=== PATIENT | male | born 1990 | race Caucasian/White ===

== ENCOUNTER 2017-03-06 19:28 | Emergency (ER) | payer BC ==
[2017-03-06] MEDS ORDERED: LIDOCAINE HCL 1%, 10 MG/ML (50 mL VIAL) INF ONE (20:33)
[2017-03-06] MEDS ORDERED: VANCOMYCIN 1,500 MG in DEXTROSE 5%-WATER - 500 ML IVPB ONE (20:33)
[2017-03-06] MEDS ORDERED: SODIUM CHLORIDE 500 ML IV STA (20:34)
--- NOTE | 2017-03-06 20:40 | PDOC ---
History of Present Illness - General Chief Complaint: Wound Stated Complaint: ABSCESS BOIL Time Seen by Provider: 03/06/17 19:54 History Source: Patient Exam Limitations: No Limitations - History of Present Illness Initial Comments: 03/06/17 20:35 26yo Male patient w/ PmHx: HIV presents to ED c/o Abscess to left hip. Patient state symptoms began on Friday and has gotten worse. Patient reports few years ago similar symptoms occurred and he was evaluated by Business Attorney with dx: "cyst." Patient states today site is red, hot, tender and growing in size. He denies fever, cough, congestion, n/v/d, rash or any other complaints at this time. Timing/Duration: reports: getting worse Severity: Yes: moderate Location: reports: extremities Respiratory Risk Factors: reports: no cause identified Modifying Factors: worse with: antihistamine, calamine lotion, prednisone, scratching, topical steriods, other Associated Symptoms: denies: denies symptoms, blisters, change in skin texture, edema, fever, flushing, headache, hives, jaundice, malaise, nasal congestion, numbness, pallor, paresthesia, petechiae, rash, sore throat, swelling/mass/lumps , tingling, other Past History - Travel Traveled outside of the country in the last 30 days: No Close contact w/someone who was outside of country & ill: No - Past Medical History Allergies/Adverse Reactions: Allergies Allergy/AdvReac Type Severity Reaction Status Date / Time No Known Allergies Allergy Verified 03/06/17 20:04 Home Medications: Ambulatory Orders Cephalexin [Keflex] 500 mg PO BID #20 capsule 03/06/17 Elviteg/Gogo/Emtric/Tenofo Ala [Genvoya Tablet] 1 each PO DAILY 03/06/17 Oxycodone HCl/Acetaminophen [Percocet 10-325 mg Tablet] 1 each PO Q6H PRN #16 tablet MDD 4 TABS 03/06/17 Sulfamethoxazole/Trimethoprim [Bactrim Ds -] 1 tab PO BID #20 tablet 03/06/17 HIV: Yes - Psycho/Social/Smoking Cessation Hx Suicidal Ideation: No Smoking History: Current every day smoker Information on smoking cessation initiated: No Review of Systems - Review of Systems Able to Perform ROS?: Yes Is the patient limited Bengali proficient: No Constitutional: No: Chills, Fever, Night Sweats, Weakness Respiratory: No: Orthopnea, Shortness of Breath, Stridor, Wheezing Cardiac (ROS): No: Chest Pain, Lightheadedness, Palpitations, Syncope, Chest Tightness ABD/GI: No: Diarrhea, Nausea, Vomiting : No: Dysuria, Flank Pain, Hematuria, Pain Musculoskeletal: No: Back Pain Integumentary: Yes: Erythema, Other (Abscess). No: Bruising Neurological: No: Headache, Seizure, Ataxia, Dizziness All Other Systems: Reviewed and Negative *Physical Exam - Vital Signs Last Vital Signs Temp Pulse Resp BP Pulse Ox 98.3 F 111 H 18 124/70 99 03/06/17 19:34 03/06/17 19:34 03/06/17 19:34 03/06/17 19:34 03/06/17 19:48 - Physical Exam General Appearance: Yes: Nourished, Appropriately Dressed. No: Apparent Distress, Mild Distress, Moderate Distress, Severe Distress Neck: positive: Trachea midline, Supple. negative: Lymphadenopathy (R), Lymphadenopathy (L) Respiratory/Chest: positive: Lungs Clear, Normal Breath Sounds. negative: Chest Tender, Respiratory Distress, Accessory Muscle Use, Labored Respiration, Rapid RR Cardiovascular: positive: Regular Rhythm, Regular Rate Musculoskeletal: positive: Normal Inspection. negative: CVA Tenderness, Decreased Range of Motion, Vertebral Tenderness Extremity: positive: Normal Capillary Refill, Normal Inspection, Normal Range of Motion, Erythema (Left Hip), Inflammation (Left Hip). negative: Pedal Edema , Swelling, Calf Tenderness Integumentary: positive: Normal Color, Dry, Warm, Erythema, Other (Abscess formation). negative: Rash, Swelling, Bruising Neurologic: positive: media sales representative II-XII NML intact, Fully Oriented, Alert, Normal Mood/ Affect, Normal Response, Motor Strength 5/5 Procedures - Incision and Drainage I&D Site: Left: Other (HIP) Betadine cleansed: Yes Anesthesia: 1% Lidocaine Volume(ml): 10 Blade Size: 11 Attempts: 1 Iodinated Packin/4 in Plain Packing: Yes Complications: none Dressing: Yes Progress: 03/06/17 23:37 PATIENT TOLERATED PROCEDURE FAIRLY. ED Treatment Course - LABORATORY CBC & Chemistry Diagram: 03/06/17 21:00 03/06/17 21:55 *DC/Admit/Observation/Transfer Diagnosis at time of Disposition: Skin abscess Qualifiers: Site of cutaneous abscess: extremity Site of cutaneous abscess of extremity: lower extremity Laterality: left Qualified Code(s): L02.416 - Cutaneous abscess of left lower limb - Discharge Dispostion Disposition: HOME Condition at time of disposition: Improved Admit: No - Prescriptions Prescriptions: Sulfamethoxazole/Trimethoprim [Bactrim Ds -] 1 tab PO BID #20 tablet Cephalexin [Keflex] 500 mg PO BID #20 capsule Oxycodone HCl/Acetaminophen [Percocet 10-325 mg Tablet] 1 each PO Q6H PRN #16 tablet MDD 4 TABS PRN Reason: Severe Pain - Patient Instructions Printed Discharge Instructions: DI for Skin Abscess, DI for Incision and Drainage of a Skin Abscess Additional Instructions: FOLLOW UP IN 2 DAYS FOR RE-EVALUATION. TAKE MEDICATIONS PRESCRIBED. DO NOT DRIVE, DRINK ALCOHOL, OR OPERATE HEAVY MACHINERY WHILE TAKING PERCOCET. MONITOR FOR FEVER, INCREASE PAIN, SWELLING, FOUL ODOR OR ANY OTHER CONCERNS AND RETURN FOR EVALUATION. Print Language: FAROESE - Post Discharge Activity Work/School Note: Back to Work
[2017-03-06] MEDS ORDERED: LIDOCAINE HCL/PF 1% SDV 5ML VIAL ONE (21:02)
[2017-03-06] MEDS ORDERED: LIDOCAINE 2.5%/PRILOCAINE 2.5% (5 Gram/TUBE) TP ONE ×2 (21:24→23:06)
[2017-03-06 21:32] LABS: BASOPHIL 0.3 % (0-2.0); EOSINOPHIL 0.6 % (0-4.5); MCH 36.8 pg (25.7-33.7); MCHC 34.3 g/dl (32.0-35.9); MEAN CELL VOLUME 107.4 fl (80-96); NEUTROPHILS 75.7 % (42.8-82.8); PLATELET COUNT 193 K/MM3 (134-434); RDW 11.6 % (11.9-15.9); WHITE BLOOD COUNT 9.6 K/mm3 (4.0-10.0)
[2017-03-06] MEDS ORDERED: morphine CARPU-JECT 4 MG/1 ML DISP.SYRIN ONE (21:33)
[2017-03-06] MEDS ORDERED: ONDANSETRON 4 MG/2 ML VIAL ONE (21:33)
[2017-03-06] MEDS ORDERED: morphine CARPU-JECT 4 MG/1 ML DISP.SYRIN IVPUSH ONE ×2 (21:38→23:06)
[2017-03-06] MEDS ORDERED: ONDANSETRON 4 MG/2 ML VIAL IVPUSH ONE ×2 (21:38→23:06)
[2017-03-06 22:50] LABS: ALBUMIN 3.9 g/dl (3.4-5.0); ALK PHOS 58 U/L (45-117); ANION GAP 8 (8-16); BILIRUBIN,TOTAL 0.6 mg/dL (0.2-1.0); CALCIUM 8.4 mg/dL (8.5-10.1); CO2 26 mmol/L (21-32); COCKROFT - GAULT 91.9; GLUCOSE,RANDOM 85 mg/dL (74-106); SGOT/AST 17 U/L (15-37); SGPT/ALT 20 U/L (12-78); TOT PROT 6.8 g/dl (6.4-8.2)
[2017-03-06 23:08] LABS: PLATELET ESTIMATE ADEQUATE (NORMAL)
[2017-03-07 00:30] VITALS: BP 130/75; PULSE 89; TEMP 98
== END 2017-03-07 00:27 | disposition home or self-care (01) ==
LOC: JER 19:28
PROC: 0H9JXZZ Drainage of Left Upper Leg Skin, External Approach (ICD-10-PCS; principal; 2017-03-06)
PROC: 3E03329 Introduction of Other Anti-infective into Peripheral Vein, Percutaneous Approach (ICD-10-PCS; 2017-03-06)
PROC: 3E033NZ Introduction of Analgesics, Hypnotics, Sedatives into Peripheral Vein, Percutaneous Approach (ICD-10-PCS; 2017-03-06)
PROC: 3E033GC Introduction of Other Therapeutic Substance into Peripheral Vein, Percutaneous Approach (ICD-10-PCS; 2017-03-06)
DX: L02.416 Cutaneous abscess of left lower limb (principal); Z21 Asymptomatic human immunodeficiency virus [HIV] infection status; F17.210 Nicotine dependence, cigarettes, uncomplicated
CPT/HCPCS: 36415; 80053; 85025; 87040; 99283-25

== ENCOUNTER 2017-03-08 14:46 | Emergency (ER) | payer BC ==
[2017-03-08 14:54] VITALS: BP 136/79; PULSE 104; TEMP 100.1
--- NOTE | 2017-03-08 15:44 | PDOC ---
Suture Removal/Wound Check HPI - History of Present Illness Chief Complaint: Revisit,Wound Recheck Stated Complaint: DRAIN REMOVAL Time Seen by Provider: 03/08/17 15:19 History Source: Yes: Patient Exam Limitations: Yes: No Limitations Treated at: [facility] Date of Last ED visit: 03/06/17 - Previous ED Treatment Type of procedure performed on last visit: Yes: I&D of Abscess (left hip area) Tetanus Immunization: Yes: Up to Date Antibiotics Prescribed: Yes (bactrim DS and keflex ) - Onset of Previous Treatment Date of Occurence: 03/06/17 (I & D here ) Past History - Past Medical History Allergies/Adverse Reactions: Allergies No Known Allergies Allergy (Verified 03/08/17 14:54) Home Medications: Ambulatory Orders Cephalexin [Keflex] 500 mg PO BID #20 capsule 03/06/17 Elviteg/Gogo/Emtric/Tenofo Ala [Genvoya Tablet] 1 each PO DAILY 03/06/17 Oxycodone HCl/Acetaminophen [Percocet 10-325 mg Tablet] 1 each PO Q6H PRN #16 tablet MDD 4 TABS 03/06/17 Sulfamethoxazole/Trimethoprim [Bactrim Ds -] 1 tab PO BID #20 tablet 03/06/17 General: Yes: other (HIV) - Social History Smoking Status: Current every day smoker Number of Ciarettes Per Day: 3 Suture Removal/Wound Check PE - Physical Exam Laceration/Wound Check Symptoms: reports: Improved (left hip less painful) Current Severity Level: Mild Maximum Severity Level: Moderate Location of Laceration/Wound: left: Hip, Toe Comments: 03/08/17 15:42 Packing noted left hip with minimal surrounding erythema, slightly tender to touch, area I & D'd here on 03/06/17 03/08/17 15:42 Pain Radiation: None *Review of Systems - Review of Systems Able to Perform ROS?: Yes Constitutional: No: Symptoms Reported HEENTM: No: Symptoms Reported Respiratory: No: Symptoms reported Cardiac (ROS): No: Symptoms Reported ABD/GI: No: Symptoms Reported : No: Symptoms Reported Musculoskeletal: No: Symptoms Reported Integumentary: Yes: Other (left hip I & D here on 03/06/17, packing remains with minimal surrounding erythema) Procedures - Consent Consent obtained: From Patient - Additional Procedures Progress: 03/08/17 15:44 left hip packing removed, small amount of thick white discharge expressed from wound area cleansed with betadine and irrigated with NS 0.9% dried and 2 x 2 gauze reapplied with tegaderm Medical Decision Making - Medical Decision Making 03/08/17 15:48 03/08/17 15:53 03/08/17 15:53 Patient is a 26-year-old male with a history of HIV here today for packing removal from left hip after abscess was I & D's here 03/06/2017. Patient has been compliant with taking 2 different antibiotics Keflex and Bactrim. Patient denies any fever. Patient in triage was noted to have a temp however her temp was taken in exam room and was noted to be 98.6. Patient reports that pain in left hip area is much less. Packing removal left hip PLAN: Take antibiotics as previously ordered Follow up with surgeon Dr. Guevara for further evaluation this week *DC/Admit/Observation/Transfer Diagnosis at time of Disposition: Encounter for abscess packing removal - Discharge Dispostion Disposition: HOME Condition at time of disposition: Stable - Referrals Referrals: STAFF,NOT ON [Primary Care Provider] - Alex Guevara MD [Staff Physician] - - Patient Instructions Additional Instructions: Cleanse wounds with antibacterial soap and water dry wound cover with dressing when out of the home let air out at night Return to emergency room if any increased redness or tenderness of the left hip area or fever Follow up with surgeon this week for further evaluation Continue to take antibiotics as previously ordered Patient voiced understanding of discharge instructions and all questions were answered
== END 2017-03-08 15:59 | disposition home or self-care (01) ==
LOC: JERFT 14:46
DX: Z48.01 Encounter for change or removal of surgical wound dressing (principal); L02.416 Cutaneous abscess of left lower limb
CPT/HCPCS: 99281-25

== ENCOUNTER 2017-12-03 12:08 | Emergency (ER) | payer BC, OTHER ==
[2017-12-03] MEDS ORDERED: DIPHTH,PERTUSS(ACELL),TET 0.5 ML DISP.SYRIN IM ONE (12:22)
[2017-12-03 12:29] VITALS: BP 149/94; PULSE 86; TEMP 99.2; BMI 21.1
--- NOTE | 2017-12-03 12:34 | PDOC ---
History of Present Illness - General Chief Complaint: Bite Stated Complaint: DOG BITE TO RIGHT LOWER JAW AND CHEEK Time Seen by Provider: 12/03/17 12:11 - History of Present Illness Initial Comments: 12/03/17 12:29 27 M with h/o HIV on HAART, presenting with minor abrasion to R cheek after being bitten by a dog. 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 The dog subsequently bit his face, and the pt pulled away. Denies any significant bleeding or breakage of skin. No injuries anywhere else. The dog is known to the vet and has been immunized against rabies. Pt does not recall when his last tetanus shot was. Past History - Past Medical History Allergies/Adverse Reactions: Allergies Allergy/AdvReac Type Severity Reaction Status Date / Time No Known Allergies Allergy Verified 12/03/17 12:17 Home Medications: Ambulatory Orders Elviteg/Cob/Emtri/Tenof Alafen [Genvoya Tablet] 1 each PO DAILY 03/06/17 Amoxicillin/Potassium Clav [Augmentin 875-125 Tablet] 1 each PO BID #10 tablet 12/03/17 - Suicide/Smoking/Psychosocial Hx Smoking History: Current every day smoker Number of Cigarettes Smoked Daily: 3 Hx Alcohol Use: Yes (SOCIAL) Drug/Substance Use Hx: No Substance Use Type: None Review of Systems - Review of Systems Comments:: 12/03/17 12:31 "GENERAL/CONSTITUTIONAL: No fever or chills. No weakness. HEAD, EYES, EARS, NOSE AND THROAT: No change in vision. No ear pain or discharge. No sore throat. CARDIOVASCULAR: No chest pain or shortness of breath. RESPIRATORY: No cough, wheezing, or hemoptysis. GASTROINTESTINAL: No nausea, vomiting, diarrhea or constipation. GENITOURINARY: No dysuria, frequency, or change in urination. MUSCULOSKELETAL: No joint or muscle swelling or pain. No neck or back pain. SKIN: abrasion to R cheek NEUROLOGIC: No headache, vertigo, loss of consciousness, or change in strength/ sensation. ENDOCRINE: No increased thirst. No abnormal weight change. HEMATOLOGIC/LYMPHATIC: No anemia, easy bleeding, or history of blood clots. ALLERGIC/IMMUNOLOGIC: No hives or skin allergy. " *Physical Exam - Physical Exam Comments: 12/03/17 12:31 "GENERAL: Awake, alert, and fully oriented, in no acute distress HEAD: No signs of trauma EYES: PERRLA, EOMI, sclera anicteric, conjunctiva clear ENT: Auricles normal inspection, hearing grossly normal, nares patent, oropharynx clear without exudates. Moist mucosa NECK: Nontender, no stepoffs, Normal ROM, supple, no lymphadenopathy, JVD, or masses LUNGS: Breath sounds equal, clear to auscultation bilaterally. No wheezes, and no crackles HEART: Regular rate and rhythm, normal S1 and S2, no murmurs, rubs or gallops ABDOMEN: Soft, nontender, normoactive bowel sounds. No guarding, no rebound. No masses EXTREMITIES: Normal range of motion, no edema. No clubbing or cyanosis. No cords, erythema, or tenderness NEUROLOGICAL: Cranial nerves II through XII intact. 5/5 strength and sensation in all extremities, Normal speech, normal gait SKIN: superficial linear abrasion to R cheek with small superficial punctate area of skin breakage " Medical Decision Making - Medical Decision Making 12/03/17 12:32 27 M with HIV presenting with bite wound to R cheek. Exam notable only for superficial abrasion with small punctate area of skin breakage. No indication for wound repair. - Tdap - Ppx with augmentin - Animal bite form filled out and submitted I discussed the physical exam findings, ancillary test results and final diagnoses with the patient. I answered all of the patient's questions. The patient was satisfied with the care received and felt comfortable with the discharge plan and treatment plan. The patient agrees to follow up with the primary care physician within 24-72 hours. *DC/Admit/Observation/Transfer Diagnosis at time of Disposition: Dog bite - Discharge Dispostion Disposition: HOME Condition at time of disposition: Stable - Prescriptions Prescriptions: Amoxicillin/Potassium Clav [Augmentin 875-125 Tablet] 1 each PO BID #10 tablet - Referrals - Patient Instructions Printed Discharge Instructions: DI for Dog Bite Additional Instructions: Take the antibiotics as prescribed to prevent infection. If you experience worsening pain, swelling, redness, or any other concerning symptoms, return to the ER immediately. Otherwise, follow up with your primary doctor within 1 week for a re-evaluation. - Post Discharge Activity Forms/Work/School Notes: Back to Work - Attestations Physician Attestion: 12/03/17 12:35 I, Dr. Alex Walker MD, attest that this document has been prepared under my direction and personally reviewed by me in its entirety. I further attest, that it accurately reflects all work, treatment, procedures and medical decision -making performed by me.
[2017-12-03] MEDS ORDERED: AMOX TR/POT CLAV 875MG/125MG TABLETS (FP) PO ONE (12:35)
[2017-12-03] MEDS ORDERED: AMOX TR/POT CLAV 875MG/125MG TABLETS (FP) ONE (12:50)
== END 2017-12-03 13:14 | disposition home or self-care (01) ==
LOC: FER 12:08
PROC: 3E0234Z Introduction of Serum, Toxoid and Vaccine into Muscle, Percutaneous Approach (ICD-10-PCS; principal; 2017-12-03)
DX: S01.451A Open bite of right cheek and temporomandibular area, initial encounter (principal); W54.0XXA Bitten by dog, initial encounter; Y93.89 Activity, other specified; Y92.238 Other place in hospital as the place of occurrence of the external cause; Y99.0 Civilian activity done for income or pay; F17.210 Nicotine dependence, cigarettes, uncomplicated
CPT/HCPCS: 90715; 99282-25